=== PATIENT | female | born 1955 | race Caucasian/White ===

== ENCOUNTER → 2020-08-07 07:36 | Outpatient (CLI) | payer OTHER, SELFPAY ==
--- NOTE | 2020-08-07 07:43 | CT_ITS ---
STUDY: CT MAXILLOFACIAL SINUSES REASON FOR EXAM: Female, 65 years old. SINUSITIS-PRIOR SINUS FX 2 YRS AGO RADIATION DOSAGE (If Supplied By Facility): CTDIvol = ( 33.06 ) mGy, DLP = ( 734.68 ) mGycm TECHNIQUE: The patient was scanned in a multi detector CT scanner. High resolution axial imaging was performed without the administration of intravenous contrast material. Sagittal and coronal images were reconstructed. Individualized dose optimization techniques were used for this CT. COMPARISON: None. FINDINGS: FRONTAL SINUSES: Normal aeration, without mucosal inflammatory disease. ETHMOIDAL SINUSES: Normal aeration, without mucosal inflammatory disease. MAXILLARY SINUSES: Normal aeration, without mucosal inflammatory disease. SPHENOIDAL SINUSES: Normal aeration, without mucosal inflammatory disease. There are Reed cells with narrowing of the of the ostia, infundibuli, and hiatus semilunaris. Normal bilateral middle turbinates. There is mucosal hypertrophy of the bilateral inferior turbinates. There is a left sided nasal septal deviation. There is patency of the bilateral nasal airways. The visualized osseous structures are normal. The visualized bilateral orbital contents are normal. CT/Sinus/Facial Bone IMPRESSION: The paranasal sinuses are clear. Narrowing of the ostiomeatal units. Nasal septal deviation. Mucosal hypertrophy of the turbinates narrowing the nasal air passageway. Electronically Signed: Ryan Chew MD at 10:08 EDT , Service support ,
== END ==
PROVIDERS: PCP Family Medicine; Referring Provider Otolaryngology; Visit Provider Otolaryngology
DX: J32.8 Other chronic sinusitis (principal)
CPT/HCPCS: 70486

== ENCOUNTER 2021-04-13 19:03 | Emergency (ER) | payer OTHER, SELFPAY ==
[2021-04-13 19:04] VITALS: BP 172/88; PULSE 112; RESP 16; TEMP 36; O2SAT 97; BMI 29.7
--- NOTE | 2021-04-13 19:15 | EX.ED.DYSGE1 ---
HPI History of Present Illness Chief Complaint: Rash Detail of Chief Complaint: Painful rash with swollen left ring finger Onset/Context/Timing Onset: Days Context: Sudden Onset Timing: Continuous Quality: Initially blisters that have coalesced and painful Location: Ulnar side of left ring finger Current Severity: Moderate Maximum Severity: Moderate Worsened by: Herpetic erica and constrictive wedding band Relieved by: Nothing Associated Symptoms Associated Symptoms: Herpetic erica on antiviral Narrative Narrative: Patient is a retired 66-year-old woman who presents with painful rash that initially was a cluster of blisters. The cluster of blisters has coalesced. She has a swollen left finger. She is unable to remove her ring/wedding band. There is no lymphangitic streaking. There is no neurovascular compromise of the digit. Prior similar symptoms: No Recent Illness/Hospitalization: Yes [facility] Social History (Updated 04/13/21 @ 19:[address] Lauri Rodriguez MD) household members: spouse Smoking Status: Never smoker substance use type: does not use ROS ROS ED Constitutional Constitutional ED: Denies chills, fever(s), subjective, sweats or weight loss Eyes Eyes: Reports other Details: Denies photophobia ; Denies blurry vision, change in vision or diplopia ENT ENT ED: Reports sore throat; Denies ear pain or rhinorrhea Cardiovascular Cardiovascular: Denies chest pain Respiratory/Chest Respiratory/Chest: Denies dyspnea Gastrointestinal Gastrointestinal: Denies nausea or vomiting Musculoskeletal Musculoskeletal: Denies arthralgias or myalgias Integumentary Reports rash Neurologic Neurologic: Reports headache(s); Denies paresthesias or weakness EXAM Physical Exam Const Vital Signs: 04/13/21 19:04 Temperature 96.8 F L Temperature Source Temporal Pulse Rate 112 H Respiratory Rate 16 Blood Pressure 172/88 H Blood Pressure Mean 116 Pulse Ox 97 Oxygen Delivery Method Room Air Positive well nourished and well developed General Appearance ED: well developed and NAD HEENT Reports moist mucous membranes HEENT Narrative: Posterior pharynx out erythema or exudate. Uvula midline. There is no herpetic lesions noted. Ears are normal. Nares are patent. Negative for trauma Eyes PERRL and EOMs intact bilaterally Eyes Narrative: Conjunctive is pink. There is no lesions noted. General Eye ED: Negative for pale conjunctiva or scleral icterus Neck no lymphadenopathy, supple and no JVD Resp normal respiratory effort and clear to auscultation bilaterally Cardio regular rate, regular rhythm, S1 normal heart sound, S2 normal heart sound and no murmurs Extremity Negative for normal to inspection Extremity Narrative: Patient has herpetic erica ulnar side of left ring finger. This finger is swollen she is unable to remove the wedding band. Will have wedding band removed. There is no neurovascular applied to the digit. There is no evidence of cellulitis, secondary infection there is no lymphangitis. The blisters have coalesced. General Extremety ED: Yes edema and tenderness General Extremity: edema Neuro oriented x3 and no sensory deficits noted Sensorium / Orientation: alert Motor Exam: strength 5/5 throughout Psych mental status grossly normal Skin No no rashes or lesions noted and no wounds Skin Narrative: Rash consistent with herpetic erica she has pain out of proportion to light touch Rashes: rashes noted MDM MDM MDM Narrative Medical decision making narrative: Will have nurse remove the wedding band. Patient is on antiviral presently. She was instructed to continue taking the antiviral until gone. She was told not to use her contacts until the lesions have resolved. She had a recent EGD and suspect that is the cause of her sore throat since there is no abnormality noted on visualization. Discharge Plan Triage Chief Complaint: Rash ED Provider: Lauri Rodriguez Dx/Rx/DC Orders Clinical Impression: Herpetic erica, External constriction caused by other object Instructions: Herpes: Caring for Sores, Herpes: Treatment with Medication Primary Care Provider: Qamar Vincent Referrals: Qamar Vincent MD [Primary Care Provider] - 10-14 Days if not better Disposition Disposition: Home, Self Care
[2021-04-13 19:27] VITALS: BP 124/78; PULSE 74; RESP 16; O2SAT 99
== END 2021-04-13 20:00 | disposition home or self-care (01) ==
LOC: ED 19:28
PROVIDERS: Emergency Provider Emergency Medicine; PCP Family Medicine; Visit Provider Emergency Medicine
DX: B00.89 Other herpesviral infection (principal); J02.9 Acute pharyngitis, unspecified
CPT/HCPCS: 99282